=== PATIENT | female | born 1955 | race Caucasian/White ===

== ENCOUNTER → 2016-10-23 | Outpatient (CLI) | payer BC | LOC: CIMAGING 08:34 | DX: Z12.31 Encounter for screening mammogram for malignant neoplasm of breast (principal); Z80.3 Family history of malignant neoplasm of breast | CPT/HCPCS: G0202 ==

== ENCOUNTER → 2016-11-10 | Outpatient (CLI) | payer BC | LOC: CIMAGING 12:49 | DX: Z12.39 Encounter for other screening for malignant neoplasm of breast (principal); R92.2 Inconclusive mammogram; Z80.3 Family history of malignant neoplasm of breast | CPT/HCPCS: G0206 ==

== ENCOUNTER 2016-12-05 08:10 | Emergency (ER) | payer BC ==
[2016-12-05 08:24] VITALS: BP 119/68; PULSE 74; RESP 16; TEMP 98.2; O2SAT 97
--- NOTE | 2016-12-05 08:51 | EDPHY ---
H & P Stated Complaint: left hand pain vs fall yesterday HPI/ROS: CHIEF COMPLAINT: HISTORY OF PRESENT ILLNESS: This is a healthy [id number] 61-year-old female who fell onto her outstretched left hand yesterday afternoon, over 12 hours ago, while playing pickle ball on a tennis court. She denies wrist pain or finger pain. She is having pain on the back of her hand with swelling that has increased since the fall. No numbness. No weakness, but it is painful for her to grasp anything. She denies other injuries. REVIEW OF SYSTEMS: A ten point review of systems was performed and is negative with the exception of the items mentioned in the HPI. Diarrhea that began a few months ago and has been treated with a medication, the name of which she can't remember. The diarrhea has resolved. Source: Patient Exam Limitations: No limitations - Personal History Current Tetanus Diphtheria and Acellular Pertussis (TDAP): Yes - Medical/Surgical History Hx Asthma: No Hx Chronic Respiratory Disease: No Hx Diabetes: No Hx Cardiac Disease: No Hx Renal Disease: No Hx Cirrhosis: No Hx Alcoholism: No Hx HIV/AIDS: No Hx Splenectomy or Spleen Trauma: No Other PMH: Hypercholesterolemia - Social History Smoking Status: Never smoked Additional Social History: She is retired. She worked for the [employer] in [employer]. - Physical Exam Exam: General Appearance: Alert. Vital signs reviewed. A focused examination was performed. Neck: Nontender over the cervical spine in the midline. Respiratory: Lungs are clear to auscultation; no wheezes, rales, or rhonchi. Cardiovascular: Regular rate and rhythm; no murmur, rub, or gallop. Skin: Warm and dry, no rashes on exposed skin, normal color. Back: Nontender to palpation over the thoracolumbar spine. Extremities: Swelling and bruising jillian the dorsum of the left hand with tenderness over the 2nd, 3rd, and 4th metacarpals. No palpable or visible deformity. Full active range of motion of the digits of her left hand and of her left wrist. Neurological: Alert and oriented. Moving all four extremities easily and equally. Sensation intact to light touch over her left hand and arm. Normal strength in left hand and wrist. No nerve deficits. Pulse: 2+ left radial pulse. Psychiatric: Normal affect. Constitutional: Initial Vital Signs Temperature (C) 36.8 C 12/05/16 08:22 Heart Rate 74 12/05/16 08:22 Respiratory Rate 16 12/05/16 08:22 Blood Pressure 119/68 12/05/16 08:22 O2 Sat (%) 97 12/05/16 08:22 O2 Delivery Mode Room Air Allergies/Adverse Reactions: Penicillins Allergy (Verified 12/05/16 08:26) Home Medications: Medication Instructions Recorded Antibiotic Pill For Gi 12/05/16 SIMVASTATIN 12/05/16 Medical Decision Making - Diagnostics Imaging Results: Imaging Impressions Hand X-Ray 12/05/16 08:25 Impression: No fracture. ED Course/Re-evaluation: I reviewed the x-ray. There is no fracture. Neurovascularly intact in the left forearm, wrist, and hand. I discussed the results with the patient. She was given written and verbal instructions concerning the management of a hand contusion. Differential Diagnosis: I considered a differential diagnosis that includes but is not limited to fracture, dislocation, sprain, strain, contusion, and abrasion. Departure - Departure Disposition: Home, Routine, Self-Care Clinical Impression: Contusion of hand, left Qualifiers: Encounter type: initial encounter Qualified Code(s): S60.222A - Contusion of left hand, initial encounter Condition: Good Instructions: Contusion in Adults (ED) Additional Instructions: Adult Pain & Fever Control: We recommend Acetaminophen (Tylenol) and Ibuprofen (Motrin,Advil) for pain and fever control. When fever is high or pain severe, both drugs can be used at the same time, but at different intervals. Please note the time differences. Your dose is: Acetaminophen 650mg every 4 to 6 hours Ibuprofen 400mg every 8 hours with food OR Note: do not take Acetaminophen with Hydrocodone (Vicodin, Lortab) or Oycodone (Percocet). These medications also contain Acetaminophen. No more than 3000mg of Acetaminophen should be taken in 24 hours (for an adult). Referrals: Tianna Ramirez MD [Primary Care Provider] - As per Instructions
== END 2016-12-05 09:05 | disposition home or self-care (01) ==
LOC: CED 08:10
DX: S60.222A Contusion of left hand, initial encounter (principal); W19.XXXA Unspecified fall, initial encounter; Y92.312 Tennis court as the place of occurrence of the external cause; Y99.8 Other external cause status; Y93.73 Activity, racquet and hand sports
CPT/HCPCS: 73130-PO

== ENCOUNTER → 2017-11-23 | Outpatient (CLI) | payer BC | LOC: BRMIMAGING 12:51 | PROVIDERS: ATTEND Internal Medicine | DX: Z12.31 Encounter for screening mammogram for malignant neoplasm of breast (principal); M85.89 Other specified disorders of bone density and structure, multiple sites ==

== ENCOUNTER → 2018-12-01 | Outpatient (CLI) | payer BC | LOC: BRMIMAGING 08:46 ==